=== PATIENT | male | born 1985 | race Caucasian/White ===

== ENCOUNTER 2017-12-29 22:32 | Emergency (ER) | payer SELFPAY ==
--- NOTE | 2017-12-30 00:30 | ED ---
Skin Complaint - HPI Summary HPI Summary: Patient is a 32-year-old male presenting to the ED with redness to the plantar surface of the foot times several days. He states he has been walking more frequently when he noticed the redness. There is no obvious puncture wound or signs of infection otherwise. The area is not warm or indurated. He remains ambulatory. He arrives to the ED requesting a ride home. He has been feeling otherwise well and denies any fevers, sweats, chills. - History of Current Complaint Chief Complaint: EDExtremityLower Time Seen by Provider: 12/29/17 23:57 Stated Complaint: SORES ON LT FT Hx Obtained From: Patient Onset/Duration: Started Days Ago Skin Exposure Onset/Duration: Hours Ago Timing: Constant Onset Severity: Moderate Current Severity: Moderate Pain Intensity: 6 Pain Scale Used: 0-10 Numeric Skin Location: Discrete - plantar surface of the L foot Aggravating Symptom(s): Nothing Alleviating Symptom(s): Nothing Associated Signs & Symptoms: Negative - Allergy/Home Medications Allergies/Adverse Reactions: Allergies Allergy/AdvReac Type Severity Reaction Status Date / Time No Known Allergies Allergy Verified 12/29/17 22:36 PMH/Surg Hx/FS Hx/Imm Hx Previously Healthy: Yes - Immunization History Date of Tetanus Vaccine: unk Date of Influenza Vaccine: none Infectious Disease History: No Infectious Disease History: Denies: Traveled Outside the [place] in Last 30 Days - Social History Occupation: Unemployed Lives: Alone Alcohol Use: Occasionally Hx Substance Use: No Substance Use Type: Reports: None Hx Tobacco Use: Yes Smoking Status (MU): Former Smoker Review of Systems Constitutional: Negative Negative: Fever, Chills, Fatigue Negative: Palpitations, Chest Pain Negative: Shortness Of Breath, Cough Negative: Arthralgia, Myalgia Positive: Other - 2cm erythematous area left foot without pain on palpation Neurological: Negative All Other Systems Reviewed And Are Negative: Yes Physical Exam Triage Information Reviewed: Yes Vital Signs On Initial Exam: Initial Vitals Temp Pulse Resp BP Pulse Ox 98.1 F 80 18 143/95 97 12/29/17 22:36 12/29/17 22:36 12/29/17 22:36 12/29/17 22:36 12/29/17 22:36 Vital Signs Reviewed: Yes Appearance: Positive: Well-Appearing Skin: Positive: Warm, Skin Color Reflects Adequate Perfusion, Other - 2 cm erythematous area to the plantar surface of the left foot Head/Face: Positive: Normal Head/Face Inspection Neck: Positive: Supple, No Lymphadenopathy Respiratory/Lung Sounds: Positive: Clear to Auscultation, Breath Sounds Present Cardiovascular: Positive: RRR Musculoskeletal: Positive: Strength/ROM Intact Neurological: Positive: Speech Normal Psychiatric: Positive: Normal, Affect/Mood Appropriate Diagnostics - Vital Signs Vital Signs Temp Pulse Resp BP Pulse Ox 12/29/17 22:36 98.1 F 80 18 143/95 97 - Laboratory Lab Statement: Any lab studies that have been ordered have been reviewed, and results considered in the medical decision making process. Course/Dx - Course Course Of Treatment: There is a small 2 cm erythematous area to the plantar surface of the foot without warmth or other signs of infection. No puncture wound or entrance wound. He has been ambulating well. No obvious injury. X- rays not obtained as patient remains ambulatory without pain. - Diagnoses Provider Diagnoses: Erythema of foot Discharge - Sign-Out/Discharge Documenting (check all that apply): Patient Departure - Discharge Plan Condition: Stable Disposition: HOME Referrals: No Primary Care Phys,NOPCP [Primary Care Provider] - - Billing Disposition and Condition Condition: STABLE Disposition: Home
[2017-12-30 00:51] VITALS: BP 0/0
== END 2017-12-30 00:50 | disposition home or self-care (01) ==
LOC: ED 22:32
DX: L53.9 Erythematous condition, unspecified (principal); Z87.891 Personal history of nicotine dependence
CPT/HCPCS: 99282